=== PATIENT | male | born 1945 | race Two or more races ===

== ENCOUNTER 2024-09-18 15:25 | Emergency (ER) | payer MEDICARE, MEDICAID, SELFPAY ==
[2024-09-18 15:26] VITALS: BMI 34.9
[2024-09-18 15:49] VITALS: BP 107/62; PULSE 63; RESP 18; TEMP 36.3; O2SAT 96
--- NOTE | 2024-09-18 15:55 | PD.EDRME ---
Rapid Medical Screening Exam RME Arrival date/time: 09/18/24 15:25 79-year-old male with a history of hypertension, hyperlipidemia presents to the emergency room with a chief complaint of nausea, vomiting, diarrhea x 1 day. Patient states he recently came back from [place]. Patient states he had a surgery in [place] in which they fixed a perirectal abscess on July 19, 2024. Patient states he returned from [place] 4 days ago. I have greeted and performed a focused initial assessment of this patient. A comprehensive ED assessment and evaluation of the patient, analysis of all test results, and completion of the medical decision making process will be conducted by additional ED providers. Chief Complaint: Nausea/Vomiting/Diarrhea Time Seen by Provider: 09/18/24 15:48 Vital signs: Vital Signs Temperature 97.4 F 09/18/24 15:49 Pulse Rate 63 09/18/24 15:49 Respiratory Rate 18 09/18/24 15:49 Blood Pressure 107/62 09/18/24 15:49 Pulse Oximetry (%) 96 09/18/24 15:49 Oxygen Delivery Method Room Air 09/18/24 15:49 Vital signs reviewed by provider: Yes
[2024-09-18 17:41] LABS: Basophils % (Auto) 0 % (0-2.5); Eosinophils # (Auto) 0.1 Thou/mm3 (0.0-0.5); Eosinophils % (Auto) 1 % (0-10); Hematocrit 41.6 % (41.0-53.0); Hemoglobin 13.3 g/dL (13.5-16.0); Immature Granulocytes % (Auto) 1 % (0-0); Immature Granulocytes Auto 0.08 Thou/mm3 (0.00-0.00); Lymphocytes # (Auto) 0.8 Thou/mm3 (1.0-4.8); Lymphocytes % (Auto) 8 % (10-50); Mean Corpuscular Hemoglobin 30.1 pg (25.0-35.0); Mean Corpuscular Volume 94 fL (80-100); Monocytes % (Auto) 11 % (0-12); Neutrophils # (Auto) 7.4 Thou/mm3 (1.8-7.7); Neutrophils % (Auto) 79 % (37-80); Nucleated Red Blood Cell % 0 /100 WBC (0); Platelet Count 184 Thou/mm3 (140-440); RDW Standard Deviation 54.4 fL (35.1-43.9); Red Blood Count 4.42 Miln/mm3 (4.50-5.90); White Blood Count 9.4 Thou/mm3 (3.8-10.6)
[2024-09-18 17:59] LABS: Alanine Aminotransferase 13 U/L (10-49); Albumin, Serum 5.1 gm/dL (3.4-4.8); Albumin/Globulin Ratio 1.8 (1.2-2.2); Alkaline Phosphatase 59 U/L (46-116); Anion Gap 14 (7-16); Aspartate Amino Transferase 24 U/L (0-34); BUN/Creatinine Ratio 16 Ratio (12-20); Bilirubin,Total 0.5 mg/dL (0.3-1.2); Blood Urea Nitrogen 39 mg/dL (9-23); Calcium 9.5 mg/dL (8.3-10.6); Calcium (Corrected) 9.5 mg/dL (8.5-10.1); Carbon Dioxide 20.3 mMol/L (20.0-31.0); Chloride 110 mMol/L (98-107); Creatinine (Component) 2.4 mg/dL (0.6-1.3); Globulin 2.9 gm/dL (2.3-3.5); Glucose 108 mg/dL (74-106); Lipase 75 U/L (12-53); Osmolality,Calculated 297 (275-295); Potassium 4.5 mMol/L (3.4-5.1); Sodium 144 mMol/L (136-145); eGFR 27 See Note
--- NOTE | 2024-09-18 18:40 | PD.EDNV ---
Nausea/Vomit./Diarrhea-RME/HPI General Chief complaint: Nausea/Vomiting/Diarrhea Stated complaint: DIARRHEA/VOMITING DECREASED APPETITE Time Seen by Provider: 09/18/24 15:48 Arrival date/time: 09/18/24 15:25 RME / HPI RME / HPI Narrative: 09/18/24 15:25 79-year-old male with a history of hypertension, hyperlipidemia presents to the emergency room with a chief complaint of nausea, vomiting, diarrhea x 1 day. Patient states he recently came back from [place]. Patient states he had a surgery in [place] in which they fixed a perirectal abscess on July 19, 2024. Patient states he returned from [place] 4 days ago. I have greeted and performed a focused initial assessment of this patient. A comprehensive ED assessment and evaluation of the patient, analysis of all test results, and completion of the medical decision making process will be conducted by additional ED providers. ------ This section includes all my notes and documentations, including HPI, PE, and ED course. Rivera Morris MD HPI: 79yo male accompanied by his daughter presents to the ED for complaints of N/V/D x this morning. Daughter states the patient has had persistent vomiting and diarrhea all day today, reporting he was concerned due to having minimal blood when wiping, so she brought him in for evaluation. She notes the patient recently returned here from [place] 4 days ago after he had surgery for a perirectal abscess in July. Denies any fever, chills or any other associated symptoms. No other complaints reported. ROS: All negative except as documented in HPI. Physical Exam: General: Alert and oriented. No acute distress when remaining still. Eyes: Conjunctivae and lids clear. ENT: No nasal congestion. Neck: Supple. Heart: RRR. Lungs: No respiratory distress. Good air movement. No rhonchi, wheezing, rales. Abdomen: Soft and nontender. Legs: No clubbing, cyanosis, edema. Skin: Warm and dry. Neuro: Alert and oriented X 3. I reviewed all diagnostic test results. Blood tests unremarkable. At this point, diagnoses include gastroenteritis, from recent trip to [place]. Treatment here included Zofran, Loperamide, Metronidazole, Cipro. He started to feel better. Recommended a trial of treatment at home. Based on my best medical judgment, made decision no further evaluation or treatment indicated at this time. Patient understands and agrees to the discharge instructions customized and printed, see below. Discharge Instructions from Dr. Morris: 1. After evaluation, you have stomach flu. See attached handout on gastroenteritis. 2. Take Flagyl and Cipro to kill the germs causing your infection. 3. Your job is to stay hydrated. Zofran for nausea/vomiting. Increase oral fluid and maintain clear urine. If dark or yellow, increase oral fluid. 4. Imodium as needed for diarrhea. 5. Some good choices are water (but not only water because it will cause electrolyte abnormalities), sports drinks like Gatorade (with less sugar content), coconut water, chicken stock, and other fluid with electrolytes (like Pedialyte). 6. See your private doctor on 09/1724 if not completely better. 7. Seek immediate medical care with worsening or with any concerns. Rivera Morris MD Related Data Previous Rx's ?Medication ?Instructions ?Recorded ciprofloxacin HCl 500 mg tablet 500 mg PO BID #6 tabs 09/18/24 (Cipro) loperamide 2 mg capsule 2 mg PO Q6H PRN loose stool #10 09/18/24 caps metronidazole 500 mg tablet 500 mg PO BID 3 days #6 tabs 09/18/24 ondansetron 4 mg disintegrating 4 mg PO TID PRN nausea and 09/18/24 tablet vomiting 5 days #10 tabs Allergies Allergy/AdvReac Type Severity Reaction Status Date / Time No Known Allergies Allergy Verified 09/18/24 15:28 Review of Systems Review of Systems Systems Reviewed: All systems reviewed, normal except as documented Past Medical History Social History SMOKING STATUS: Never smoker ED Exam Narrative Physical exam: As noted in HPI. Course Quality Measures none Orders Category Date Time Status CBC Stat Lab 09/18/24 16:30 Completed CMP [Comprehensive Metabolic Panel] Stat Lab 09/18/24 16:30 Completed Lipase Stat Lab 09/18/24 16:30 Completed c diff [Clostridium Difficile PCR] Stat Lab 09/18/24 Ordered Ciprofloxacin HCl [Ciprofloxacin] Med 09/18/24 18:41 Discontinued 500 mg PO X1 ONE Loperamide [Imodium] Med 09/18/24 18:41 Discontinued 4 mg PO X1 ONE Ondansetron Odt [Zofran Odt] Med 09/18/24 18:41 Discontinued 4 mg PO X1 ONE metroNIDAZOLE [Flagyl] Med 09/18/24 18:41 Discontinued 500 mg PO X1 ONE Vital Signs Vital signs: Vital Signs Temperature 97.4 F 09/18/24 15:49 Pulse Rate 63 09/18/24 15:49 Respiratory Rate 18 09/18/24 15:49 Blood Pressure 107/62 09/18/24 15:49 Pulse Oximetry (%) 96 09/18/24 15:49 Oxygen Delivery Method Room Air 09/18/24 15:49 Nausea/Vomiting/Diarrhea MDM Narrative MDM Narrative:: Scribe Attestation: 09/18/24 Breanna Rosa am scribing for and in the presence of Dr. Morris. Patient data External records reviewed:: [facility] previous records (Per chart review, patient has no previous ED visits or admissions to this facility.) Clinical information provided by:: patient Social determinants that could affect healthcare access:: none Patient has the following chronic illnesses:: HTN, HLD How is presenting disease/condition affected by chronic disease/condition?: uneffected by Evaluation data The following diagnostics were reviewed and interpreted by me:: lab results Lab and/or radiology exams considered but not ordered:: none Interpretation Summary: Gastroenteritis Medications / Prescriptions Medications / Prescriptions considered but not ordered:: none Medication administrations:: Medication Administration History Discontinued Medications Ciprofloxacin (Ciprofloxacin Hcl 250 Mg Tablet) 500 mg PO X1 ONE Stop: 09/18/24 18:42 Last Admin: 09/18/24 19:09 Dose: 500 mg Documented By: DAMIAN Loperamide HCl (Loperamide 2 Mg Capsule) 4 mg PO X1 ONE Stop: 09/18/24 18:42 Last Admin: 09/18/24 19:09 Dose: 4 mg Documented By: OA Metronidazole (Metronidazole 250 Mg Tablet) 500 mg PO X1 ONE Stop: 09/18/24 18:42 Last Admin: 09/18/24 19:09 Dose: 500 mg Documented By: OA Ondansetron HCl (Ondansetron Odt 4 Mg Tabrap) 4 mg PO X1 ONE; Protocol Stop: 09/18/24 18:42 Last Admin: 09/18/24 19:09 Dose: 4 mg Documented By: OA Zofran, Loperamide, Metronidazole, Cipro Consultations Consultation(s) initiated? (list below): No Diagnosis Nausea Differential Diagnosis: traveler's diarrhea, food poisoning, gastroenteritis, drug-induced nausea and vomiting and dehydration Most likely diagnosis given after review of the tests above:: Gastroenteritis Admission Indicated Admission indicated?: not indicated Explain why admission is indicated or not indicated:: No criteria for admission. Admission Request Was there a request for admission?: No Disposition Plan Disposition Plan: Discharge Discharge Attestation Discharge Attestation: The patient and all family members were given an opportunity to ask questions and understood the discharge instructions. Discharge instructions specifically effects, indications for sooner follow up or return to the emergency department, and the expected course of current diagnosis. Patient condition: Stable Discharge Plan Plan Patient Disposition: HOME (Self Care) Prescriptions/Referrals Prescriptions/Med Rec: New metronidazole 500 mg tablet 500 mg PO BID 3 Days Qty: 6 0RF ciprofloxacin HCl [Cipro] 500 mg tablet 500 mg PO BID Qty: 6 0RF ondansetron 4 mg tablet,disintegrating 4 mg PO TID PRN (Reason: nausea and vomiting) 5 Days Qty: 10 0RF loperamide 2 mg capsule 2 mg PO Q6H PRN (Reason: loose stool) Qty: 10 0RF Referrals: Desean Perez PA-C [Primary Care Provider] - In 1 week Problem List Clinical Impression: Gastroenteritis Patient/Caregiver Discharge Instructions Discharge Activity: activity as tolerated Education Materials: ED Gastroenteritis, Noninfectious Additional Instructions: Discharge Instructions from Dr. Morris: 1. After evaluation, you have stomach flu.? See attached handout on gastroenteritis. 2. Take Flagyl and Cipro to kill the germs causing your infection. 3. Your job is to stay hydrated.? Zofran for nausea/vomiting.? Increase oral fluid and maintain clear urine.? If dark or yellow, increase oral fluid. 4. Imodium as needed for diarrhea. 5. Some good choices are water (but not only water because it will cause electrolyte abnormalities), sports drinks like Gatorade (with less sugar content), coconut water, chicken stock, and other fluid with electrolytes (like Pedialyte). 6. See your private doctor on 09/1724 if not completely better. 7. Seek immediate medical care with worsening or with any concerns. Print Language: [place]ian Stand Alone Forms: [employer] Info., Patient Portal Info Letter
[2024-09-18] MEDS: metroNIDAZOLE 250 MG TABLET 500 MG PO (19:09)
[2024-09-18] MEDS: LOPERAMIDE 2 MG CAPSULE 4 MG PO (19:09)
[2024-09-18] MEDS: CIPROFLOXACIN HCL 250 MG TABLET 500 MG PO (19:09)
[2024-09-18] MEDS: ONDANSETRON ODT 4 MG TABRAP PO (19:09)
== END 2024-09-18 19:34 | disposition home or self-care (01) ==
PROVIDERS: Nurse Practitioner Family; Emergency Provider Emergency Medicine; PCP Physician Assistant
DX: K52.9 Noninfective gastroenteritis and colitis, unspecified (principal); I10 Essential (primary) hypertension; E78.5 Hyperlipidemia, unspecified
CPT/HCPCS: 36415; 80053; 81001; 83690; 85025; 87086; 87493; 99283; Q0162; A9270

== ENCOUNTER → 2024-10-21 | Outpatient (CLI) | payer MEDICARE, MEDICAID, SELFPAY ==
[2024-10-21 10:18] LABS: Collection Type, Urine Clean Catch
[2024-10-21 10:45] LABS: Basophils % (Auto) 0 % (0-2.5); Eosinophils % (Auto) 1 % (0-10); Hematocrit 27.8 % (41.0-53.0); Hemoglobin 9.3 g/dL (13.5-16.0); Immature Granulocytes % (Auto) 2 % (0-0); Immature Granulocytes Auto 0.13 Thou/mm3 (0.00-0.00); Lymphocytes # (Auto) 1.4 Thou/mm3 (1.0-4.8); Lymphocytes % (Auto) 18 % (10-50); Mean Corpuscular HGB Conc 33.5 g/dl (31.0-37.0); Mean Corpuscular Hemoglobin 30.1 pg (25.0-35.0); Mean Corpuscular Volume 90 fL (80-100); Monocytes # (Auto) 0.5 Thou/mm3 (0.0-0.8); Monocytes % (Auto) 6 % (0-12); Neutrophils # (Auto) 5.4 Thou/mm3 (1.8-7.7); Neutrophils % (Auto) 73 % (37-80); Nucleated Red Blood Cell % 0 /100 WBC (0); Platelet Count 176 Thou/mm3 (140-440); RDW Standard Deviation 47.2 fL (35.1-43.9); Red Blood Count 3.09 Miln/mm3 (4.50-5.90); White Blood Count 7.5 Thou/mm3 (3.8-10.6)
[2024-10-21 10:51] LABS: Bilirubin,Urine Negative (Negative); Blood,Urine Negative (Negative); Clarity,Urine Clear (Clear/Hazy); Color,Urine Lt-Yellow (Lt Yel-Yel); Glucose, Urine Negative (Negative); Ketones,Urine Negative (Negative); Leukocyte Esterase,Urine Negative (Negative); Nitrite,Urine Negative (Negative); PH,Urine 6.5 (5.0-7.0); Protein,Urine Negative (Neg - Trace); RBC,Urine 2 /hpf (0-3); Specific Gravity,Urine 1.015 (1.001-1.035); Squamous Epithelial Cell,Urine < 1 /hpf (0-5); Urobilinogen,Urine Negative mg/dL (0.0-1.0); WBC,Urine < 1 /hpf (0-5)
[2024-10-21 11:37] LABS: Alanine Aminotransferase 17 U/L (10-49); Albumin, Serum 4.1 gm/dL (3.4-4.8); Alkaline Phosphatase 69 U/L (46-116); Anion Gap 11 (7-16); Aspartate Amino Transferase 16 U/L (0-34); BUN/Creatinine Ratio 23 Ratio (12-20); Bilirubin,Total 0.4 mg/dL (0.3-1.2); Blood Urea Nitrogen 39 mg/dL (9-23); Calcium 8.2 mg/dL (8.3-10.6); Calcium (Corrected) 8.2 mg/dL (8.5-10.1); Carbon Dioxide 24.1 mMol/L (20.0-31.0); Cardiac Risk Estimate 2.5 RATIO (4.0-6.7); Chloride 106 mMol/L (98-107); Cholesterol 149 mg/dL (132-200); Creatinine (Component) 1.7 mg/dL (0.6-1.3); Globulin 2.1 gm/dL (2.3-3.5); Glucose 82 mg/dL (74-106); HDL Cholesterol 59 mg/dL (40-60); LDL Cholesterol,Calculated 74 mg/dL (0-130); Osmolality,Calculated 289 (275-295); Potassium 4.7 mMol/L (3.4-5.1); Sodium 141 mMol/L (136-145); Total Protein 6.2 gm/dL (5.7-8.2); Triglycerides 82 mg/dL (30-150); eGFR 40 See Note
[2024-10-21 11:47] LABS: Creatinine MALB Rnd Ur 53 mg/dL (30-125); Microalbumin Creat Ratio 85 mg/gCrea (<30); Microalbumin, Random Urine 45 mg/L (0-300)
[2024-10-21 12:20] LABS: Parathyroid Hormone Intact 127.9 pg/ml (18.5-88.0)
[2024-10-21 12:33] LABS: Glucose Estimated Average 103 mg/dL (80-131); Hemoglobin A1C 5.2 % Hgb (4.8-6.0)
== END | disposition home or self-care (01) ==
LOC: COPL 09:11
PROVIDERS: PCP Physician Assistant; Referring Provider Internal Medicine; Visit Provider Internal Medicine
DX: I12.9 Hypertensive chronic kidney disease with stage 1 through stage 4 chronic kidney disease, or unspecified chronic kidney disease (principal); E78.5 Hyperlipidemia, unspecified; N18.30 Chronic kidney disease, stage 3 unspecified
CPT/HCPCS: 36415; 80053; 80061; 81001; 82043; 82570; 83036; 83970; 85025

== ENCOUNTER → 2025-02-09 | Outpatient (CLI) | payer MEDICARE, SELFPAY ==
[2025-02-09 10:06] LABS: Collection Type, Urine Clean Catch
[2025-02-09 10:29] LABS: Basophils # (Auto) 0.1 Thou/mm3 (0.0-0.2); Basophils % (Auto) 1 % (0-2.5); Eosinophils # (Auto) 0.4 Thou/mm3 (0.0-0.5); Eosinophils % (Auto) 6 % (0-10); Hematocrit 31.3 % (41.0-53.0); Hemoglobin 10.7 g/dL (13.5-16.0); Immature Granulocytes Auto 0.04 Thou/mm3 (0.00-0.00); Lymphocytes # (Auto) 1.4 Thou/mm3 (1.0-4.8); Lymphocytes % (Auto) 25 % (10-50); Mean Corpuscular HGB Conc 34.2 g/dl (31.0-37.0); Mean Corpuscular Hemoglobin 32.0 pg (25.0-35.0); Mean Corpuscular Volume 94 fL (80-100); Monocytes # (Auto) 0.5 Thou/mm3 (0.0-0.8); Monocytes % (Auto) 9 % (0-12); Neutrophils # (Auto) 3.3 Thou/mm3 (1.8-7.7); Neutrophils % (Auto) 58 % (37-80); Nucleated Red Blood Cell # 0.00 Thou/mm3 (0.00-0.00); Nucleated Red Blood Cell % 0 /100 WBC (0); Platelet Count 137 Thou/mm3 (140-440); RDW Standard Deviation 47.3 fL (35.1-43.9); Red Blood Count 3.34 Miln/mm3 (4.50-5.90); White Blood Count 5.7 Thou/mm3 (3.8-10.6)
[2025-02-09 10:31] LABS: Bilirubin,Urine Negative (Negative); Blood,Urine Negative (Negative); Clarity,Urine Clear (Clear/Hazy); Color,Urine Yellow (Lt Yel-Yel); Glucose, Urine Negative (Negative); Hyaline Casts,Urine < 1 /hpf (0-1); Ketones,Urine Negative (Negative); Leukocyte Esterase,Urine Negative (Negative); Nitrite,Urine Negative (Negative); PH,Urine 5.5 (5.0-7.0); Protein,Urine Trace (Neg - Trace); RBC,Urine 3 /hpf (0-3); Specific Gravity,Urine 1.025 (1.001-1.035); Squamous Epithelial Cell,Urine 2 /hpf (0-5); Urobilinogen,Urine Negative mg/dL (0.0-1.0); WBC,Urine 3 /hpf (0-5)
[2025-02-09 10:38] LABS: Parathyroid Hormone Intact 56.0 pg/ml (18.5-88.0)
[2025-02-09 10:49] LABS: Alanine Aminotransferase 10 U/L (10-49); Albumin, Serum 4.2 gm/dL (3.4-4.8); Albumin/Globulin Ratio 1.9 (1.2-2.2); Alkaline Phosphatase 59 U/L (46-116); Anion Gap 15 (7-16); Aspartate Amino Transferase 12 U/L (0-34); BUN/Creatinine Ratio 10 Ratio (12-20); Bilirubin,Total 0.4 mg/dL (0.3-1.2); Blood Urea Nitrogen 26 mg/dL (9-23); Calcium 9.1 mg/dL (8.3-10.6); Calcium (Corrected) 9.1 mg/dL (8.5-10.1); Carbon Dioxide 18.1 mMol/L (20.0-31.0); Cardiac Risk Estimate 3.5 RATIO (4.0-6.7); Chloride 108 mMol/L (98-107); Cholesterol 107 mg/dL (132-200); Creatinine (Component) 2.5 mg/dL (0.6-1.3); Globulin 2.2 gm/dL (2.3-3.5); Glucose 100 mg/dL (74-106); HDL Cholesterol 31 mg/dL (40-60); LDL Cholesterol,Calculated 38 mg/dL (0-130); Osmolality,Calculated 285 (275-295); Potassium 4.1 mMol/L (3.4-5.1); Sodium 141 mMol/L (136-145); Total Protein 6.4 gm/dL (5.7-8.2); Triglycerides 192 mg/dL (30-150); eGFR 25 See Note
[2025-02-09 10:53] LABS: Microalbumin, Random Urine 34 mg/L (0-300)
[2025-02-09 11:06] LABS: Creatinine MALB Rnd Ur 268 mg/dL (30-125); Microalbumin Creat Ratio 13 mg/gCrea (<30)
[2025-02-09 11:18] LABS: Glucose Estimated Average 100 mg/dL (80-131); Hemoglobin A1C 5.1 % Hgb (4.8-6.0)
== END | disposition home or self-care (01) ==
PROVIDERS: PCP Physician Assistant; Referring Provider Internal Medicine; Visit Provider Internal Medicine
DX: I12.9 Hypertensive chronic kidney disease with stage 1 through stage 4 chronic kidney disease, or unspecified chronic kidney disease (principal); N18.30 Chronic kidney disease, stage 3 unspecified; E78.5 Hyperlipidemia, unspecified
CPT/HCPCS: 36415; 80053; 80061; 81001; 82043; 82570; 83036; 83970; 85025

== ENCOUNTER → 2025-06-04 | Outpatient (CLI) | payer MEDICARE, SELFPAY ==
--- NOTE | 2025-06-04 08:30 | XR_ITS ---
Examination: Retroperitoneal ultrasound, complete Technique: Multiple high resolution grayscale images of the retroperitoneum obtained, including kidneys and bladder. Exam date and time: June 04, 2025, 0850 hours INDICATIONS: Acute renal failure on laboratory examination 2 weeks ago FINDINGS: Right kidney 11.0 cm renal cortex 1.9 cm Left kidney 12.5 cm renal cortex 1.9 cm Multiple bilateral renal cysts, the largest in the right kidney lower pole 28 mm in the left kidney midpole 38 mm No hydronephrosis No bladder mass or bladder calculi Bladder prevoid volume 77 cc Prostate 3.7 x 2.9 x 3.4 cm volume 19 cc no prostate nodules IMPRESSION: Bilateral renal cortical thinning Mild bilateral renal scarring. No hydronephrosis Negative for prostatomegaly
== END | disposition home or self-care (01) ==
PROVIDERS: PCP Internal Medicine; Referring Provider Internal Medicine; Visit Provider Internal Medicine
DX: N28.89 Other specified disorders of kidney and ureter (principal)
CPT/HCPCS: 76770